=== PATIENT | female | born 1980 | race Caucasian/White ===

== ENCOUNTER 2020-01-21 10:23 | Day surgery (SDC) | payer BC ==
[2020-01-18 11:56] VITALS: BMI 36.3
[~2020-01-21 10:23] MED LIST: Dexamethasone 20 MG/5 ML VIAL ONE; Esmolol 100 MG/10 ML VIAL ONE; Glycopyrrolate 0.2 MG/ML 5 ML SYRINGE ONE; Lidocaine 1% PF 5 ML VIAL ONE; Ondansetron PF 4 MG/2 ML Vial ONE; PROPOFOL 200 MG/20 ML VIAL ONE; Rocuronium Bromide 10 MG/ML (10ML VIAL) ONE
[2020-01-21] MEDS ORDERED: Ketorolac Tromethamine 30 MG/ML VIAL ONE (10:39)
[2020-01-21] MEDS ORDERED: Acetaminophen 500 MG TAB ONE (10:40)
[2020-01-21] MEDS ORDERED: Midazolam HCl 2 mg/2 ml Vial ONE ×2 (11:29→12:28)
[2020-01-21] MEDS ORDERED: Bupivacaine 0.25% HCL 30 ML VIAL ONE (11:34)
[2020-01-21] MEDS ORDERED: Iothalamate Meglumine 60% 50 ML VIAL FS ONE (11:34)
[2020-01-21] MEDS ORDERED: Lidocaine 1% w/Epinephrine 1:100K 20 ML VIAL ONE (11:34)
[2020-01-21] MEDS ORDERED: Fentanyl 100 MCG/2 ML VIAL ONE ×2 (12:21)
--- NOTE | 2020-01-21 14:37 | RAD ---
INTRAOPERATIVE CHOLANGIOGRAM: Date: 01/21/2020 HISTORY: Postoperative cholecystectomy intraoperative cholangiogram. FINDINGS: Two portable fluoroscopic spot image demonstrates contrast injected into the cystic duct with filling of the common hepatic and common bile duct and intrahepatic ducts with emptying into the duodenum. N o evidence for intraductal calculus. IMPRESSION: Unremarkable intraoperative cholangiogram. No evidence for retained calculus. Emptying into the duode num. POS: OFF
[2020-01-21] MEDS ORDERED: Ondansetron PF 4 MG/2 ML Vial ONE (15:42)
--- NOTE | 2020-01-22 15:27 | OP ---
DATE OF PROCEDURE: 01/21/2020 PREOPERATIVE DIAGNOSES: Symptomatic cholelithiasis, recent evidence of biliary obstruction, liver function test abnormality/elevation. POSTOPERATIVE DIAGNOSES: Symptomatic cholelithiasis, recent evidence of biliary obstruction, liver function test abnormality/elevation. PROCEDURES PERFORMED: Laparoscopic cholecystectomy, intraoperative cholangiogram, percutaneous needle biopsy of liver. ANESTHESIA: General endotracheal. INDICATIONS: The patient is a 39-year-old white female. She presented with symptoms referable to her gallbladder. She has history of symptoms consistent with biliary obstruction and marked abnormality of liver functions. Laparoscopic cholecystectomy with cholangiogram was recommended. [employer] requested liver biopsy as further evaluation of her abnormal liver function tests. DESCRIPTION OF OPERATION: Informed consent was obtained. The patient was taken to the operating room, where general endotracheal anesthesia obtained with the patient supine position. Abdomen was prepped with ChloraPrep and draped in sterile fashion. Local anesthetic was infiltrated superior to her umbilicus. She has a history of an abdominoplasty. An 11 mm incision was created and Veress needle was passed through this incision into the peritoneal cavity and pneumoperitoneum was established using carbon dioxide up to pressure of 15 mmHg. An 11 mm trocar port was passed through the same incision and laparoscopic camera was passed through this port. Under direct vision, I placed 3 additional 5 mm right upper quadrant ports in the usual fashion. Attention was turned to the liver and the gallbladder. There was noted to be an extensive encasement of the gallbladder in fatty tissue. This extended up to and included the fundus of the gallbladder. The apex was entirely nonvisualized. There were also adhesions to the liver in this area. I began the somewhat lengthy process of mobilizing the gallbladder from the surrounding fatty tissue. The dissection became more challenging as I approached the apex of the gallbladder as the fat became more dense. The omentum appeared to be encasing this. With difficulty, I was able to identify the apex of the gallbladder, and retracted it laterally and inferiorly. With further dissection, I was able to identify the cystic duct. I dissected a plane between the gallbladder and the liver and was able to identify the cystic artery, which was divided between clips, leaving 2 on the side to remain within the abdomen. The duct was clipped proximally and a cholangiogram was obtained, revealing normal biliary anatomy with quick emptying through a nondilated duct into the duodenum. There was no evidence of filling defect. The duct was doubly clipped distally and divided. The gallbladder was dissected out of the gallbladder fossa using electrocautery and removed through the supraumbilical incision. The fascial defect at that location was closed with 0 Vicryl suture using a GraNee needle. The right upper quadrant was inspected and found to be entirely hemostatic. The area was irrigated and all irrigant was aspirated. Attention was turned then to the liver biopsy. A 14-gauge liver biopsy needle was advanced into the abdominal cavity through the anterior abdominal wall after local anesthetic had been infiltrated. I obtained two core biopsies of the right lobe of the liver, one laterally and one medially. These appeared to be of excellent quality. Meticulous hemostasis was obtained in the liver using high voltage electrocautery. The area was again thoroughly irrigated and all irrigant was aspirated. Meticulous hemostasis was ensured. All ports and instruments were removed under direct vision. Pneumoperitoneum was carefully evacuated. 0.25% Marcaine with epinephrine was infiltrated at each port site. Skin edges approximated with 4-0 Monocryl subcuticular suture and Dermabond was placed externally. There were no complications. The patient tolerated the procedure well. Of note, while the liver appeared to be somewhat enlarged and with rounded edges, there did not appear to be advanced steatohepatitis. There was certainly some evidence of this, but the color of the liver was by no means yellowish. Job ID: [id number]
== END 2020-01-21 16:25 | disposition home or self-care (01) ==
LOC: SDC 10:23
PROVIDERS: ATTEND Specialist
PROC: BF121ZZ Fluoroscopy of Gallbladder using Low Osmolar Contrast (ICD-10-PCS; principal; 2020-01-21)
PROC: 0FT44ZZ Resection of Gallbladder, Percutaneous Endoscopic Approach (ICD-10-PCS; principal; 2020-01-21)
PROC: 0FB03ZX Excision of Liver, Percutaneous Approach, Diagnostic (ICD-10-PCS; principal; 2020-01-21)
DX: K80.11 Calculus of gallbladder with chronic cholecystitis with obstruction (principal); R79.89 Other specified abnormal findings of blood chemistry; Z87.891 Personal history of nicotine dependence
CPT/HCPCS: 47532; 88304; 88307; 88313; J0690; J1100; J1885; J2250; J2405; J2704; J3010; S0020